=== PATIENT | female | born 1990 | race African-American/Black ===

== ENCOUNTER → 2020-02-08 09:06 | Outpatient (BNVA) | payer MEDICAID, SELFPAY | PROVIDERS: Visit Provider Advanced Practice Midwife | DX: Z30.09 Encounter for other general counseling and advice on contraception (principal); F17.200 Nicotine dependence, unspecified, uncomplicated | CPT/HCPCS: 99213 ==

== ENCOUNTER → 2020-02-16 13:48 | Outpatient (BNVA) | payer MEDICAID, SELFPAY | PROVIDERS: Visit Provider Advanced Practice Midwife | DX: Z30.017 Encounter for initial prescription of implantable subdermal contraceptive (principal); E66.9 Obesity, unspecified; Z68.33 Body mass index [BMI] 33.0-33.9, adult | CPT/HCPCS: 11981 ==

== ENCOUNTER → 2020-03-11 13:54 | Outpatient (BNVA) | payer MEDICAID, SELFPAY | PROVIDERS: Visit Provider Advanced Practice Midwife | DX: N64.4 Mastodynia (principal) | CPT/HCPCS: 99212 ==

== ENCOUNTER → 2020-03-30 13:57 | Outpatient (BNVA) | payer MEDICAID, SELFPAY | PROVIDERS: Visit Provider Advanced Practice Midwife | DX: Z97.5 Presence of (intrauterine) contraceptive device (principal) | CPT/HCPCS: 99212 ==

== ENCOUNTER → 2020-08-18 15:15 | Outpatient (BNVA) | payer MEDICAID, SELFPAY | PROVIDERS: Visit Provider Obstetrics & Gynecology ==